=== PATIENT | male | born 1965 | race Caucasian/White ===

== ENCOUNTER 2016-06-05 22:02 | Emergency (ER) | payer OTHER ==
[~2016-06-05] VITALS: Ht 172.7 cm; Wt 85.8 kg
[2016-06-05 22:08] VITALS: Ht 172.7 cm; Wt 85.8 kg
[2016-06-06] MEDS ORDERED: CEFTRIAXONE 1 GM INJ IM ONE
[2016-06-06] MEDS ORDERED: LIDOCAINE 2% (MDV) 20 ML INJ INJ ONE
[2016-06-06] MEDS ORDERED: CEPH-443 PO ×2 (00:30→00:31)
[2016-06-06] MEDS ORDERED: BACTDS PO (00:31)
--- NOTE | 2016-06-06 00:54 | ERD ---
ER Documentation Chief Complaint Date/Time DATE: 06/06/16 TIME: 00:50 Chief Complaint right upper leg swelling/ pain and reddened and warm to touch HPI This is a 50-year-old male who presents to the ER with right upper leg redness, swelling, pain that started 3 days ago. Patient states that the first day he did have a fever however fevers have resolved. Patient believes that something bit him in that area got infected. Patient denies any numbness or tingling of his extremity. Patient states that pain is dull in nature it is worse whenever he touches it. Patient has been trying to ice the area. He denies any trauma or falls. ROS 12 point review of systems was done, all negative except per HPI. Medications Home Meds Active Scripts Sulfamethoxazole-Trimethoprim* (Bactrim* DS) 800-160 Mg Tab, 1 TAB PO BID for 7 Days, TAB Prov:ARMIDA,HUBERT C 06/06/16 Cephalexin* (Keflex*) 500 Mg Capsule, 500 MG PO QID for 7 Days, CAP Prov:ARMIDA,HUBERT C 06/06/16 Allergies Allergies: Coded Allergies: No Known Allergy (Unverified , 06/05/16) PMhx/Soc Medical and Surgical Hx: pt denies Medical Hx, pt denies Surgical Hx History of Surgery: No Anesthesia Reaction: No Hx Neurological Disorder: No Hx Respiratory Disorders: No Hx Cardiac Disorders: No Hx Psychiatric Problems: No Hx Miscellaneous Medical Probl: No Hx Alcohol Use: No Hx Substance Use: No Hx Tobacco Use: No Smoking Status: Never smoker Physical Exam Vitals Vital Signs Date Time Temp Pulse Resp B/P Pulse Ox O2 Delivery O2 Flow Rate FiO2 06/05/16 22:08 98.3 63 20 157/93 97 Physical Exam GENERAL: The patient is well developed and appropriate for usual state of health , in no apparent distress. HEENT: Atraumatic. CHEST: Clear to auscultation bilaterally. There are no rales, wheezes or rhonchi. HEART: Regular rate and rhythm. No murmurs, clicks, rubs or gallops. SKIN: There is a large area of redness to the upper leg that is about 10 cm x 7 cm. Warm to the touch, indurated and tender to palpation. Results 24 hrs Current Medications Medications (Trade) Dose Ordered Sig/Riya Route PRN Reason Start Time Stop Time Status Last Admin Dose Admin Ceftriaxone Sodium (Rocephin) 1 gm ONCE ONCE IM 06/06/16 00:00 06/06/16 00:01 DC 06/06/16 00:03 Lidocaine (Xylocaine 2% (Mdv) 20 ml) 20 ml ONCE ONCE INJ 06/06/16 00:00 06/06/16 00:01 DC 06/06/16 00:04 Procedures/MDM Differential Diagnosis: dermatitis, allergic urticaria, viral exanthem, insect bite, fungal infection ,viral exanthem, hand foot mouth disease, , impetigo, cellulitis, abscess, fariba michael syndrome, meningocemia, necrotizing fasciitis, myositis. Clinical suspcicion for necrotizing fasciitis or myositis is low. There are no skip lesions or pain away from the site of the rash. Patient likely has cellulitis. Patient is afebrile and well-appearing. He was given a shot of Rocephin here in the ER without any complications. Patient will be sent home with Bactrim and with Keflex. He was told to return to ER in 48 hours for recheck. He was also told to return to ER sooner if symptoms worsen. Departure Diagnosis: Primary Impression: Cellulitis Condition: Stable Patient Instructions: Cellulitis Additional Instructions: Regrese a estas instalaciones dentro de [facility] [place] para un examen de seguimiento.Regrese antes si reed condicin se empeora. HUBERT HUFFMAN Jun 06, 2016 00:54
== END 2016-06-06 00:55 | disposition home or self-care (01) ==
LOC: FTE 22:02
DX: L03.115 Cellulitis of right lower limb (principal)
CPT/HCPCS: 96372; J0696; Z7502; Z7610

== ENCOUNTER 2016-06-11 21:53 | Emergency (ER) | payer OTHER ==
[~2016-06-11] VITALS: Ht 167.6 cm; Wt 86.5 kg
[~2016-06-11 21:53] MED LIST: BACTDS PO; CEPH-443 PO
[2016-06-11 22:43] VITALS: Ht 167.6 cm; Wt 86.5 kg
[2016-06-12] MEDS ORDERED: CEFTRIAXONE 1 GM INJ IM STA (00:51)
[2016-06-12] MEDS ORDERED: CLIN-73 PO (01:12)
--- NOTE | 2016-06-12 01:25 | RADRPT ---
PROCEDURE: US right lower extremity venous Doppler CLINICAL INDICATION: Right leg swelling TECHNIQUE: Multiple sonographic images of the right lower extremity deep venous system was obtaine d utilizing grayscale, color-flow, compressive sonography and Doppler imaging with augmentation. COMPARISON: No pertinent prior examinations were submitted for comparison. FINDINGS: There is normal compressibility and flow within the right common femoral, superficial femoral, popli teal, and peroneal veins. IMPRESSION: No sonographic evidence for deep venous thrombosis. RPTAT: HIKT .Baljinder Yee MD, MD Date Time Electronically viewed and signed by .Baljinder Yee MD, MD on 06/12/2016 01:25 .T/
--- NOTE | 2016-06-12 01:44 | ERD ---
ER Documentation Chief Complaint Date/Time DATE: 06/12/16 TIME: 01:40 Chief Complaint Wound check HPI This is a 50-year-old male who presents to the ER with right upper leg redness, swelling, pain that started 6 days ago. Patient states that he may have gotten infected by a bug bite. Patient states that the first day he did have a fever however fevers have resolved. Patient was seen here 2 days ago and was given Keflex and Bactrim. Patient states that it has been worsening since then it has not gotten better. He denies any trauma. Denies any fevers. He states that he is compliant with the medications ROS All systems reviewed and are negative except as per history of present illness. Medications Home Meds Active Scripts Clindamycin Hcl* (Clindamycin Hcl*) 300 Mg Capsule, 300 MG PO TID for 7 Days, CAP Prov:AB EID PA-C 06/12/16 Sulfamethoxazole-Trimethoprim* (Bactrim* DS) 800-160 Mg Tab, 1 TAB PO BID for 7 Days, TAB Prov:ARMIDA,HUBERT C 06/06/16 Cephalexin* (Keflex*) 500 Mg Capsule, 500 MG PO QID for 7 Days, CAP Prov:ARMIDA,HUBERT C 06/06/16 Allergies Allergies: Coded Allergies: No Known Allergy (Unverified , 06/05/16) PMhx/Soc Medical and Surgical Hx: pt denies Medical Hx, pt denies Surgical Hx History of Surgery: No Anesthesia Reaction: No Hx Neurological Disorder: No Hx Respiratory Disorders: No Hx Cardiac Disorders: No Hx Psychiatric Problems: No Hx Miscellaneous Medical Probl: No Hx Alcohol Use: No Hx Substance Use: No Hx Tobacco Use: No Smoking Status: Never smoker Physical Exam Vitals Vital Signs Date Time Temp Pulse Resp B/P Pulse Ox O2 Delivery O2 Flow Rate FiO2 06/11/16 22:43 98.6 70 18 112/68 100 Physical Exam General: WD/WN, in no apparent distress, non-toxic appearing HENT: NC/AT Eyes: Conjunctiva normal Neck: Supple Pulm: Clear to auscultation, normal labored breathing; no wheezing/rales/ rhonchi heard CV: Good capillary refill GI: Non-distended, no guarding Back: No masses Ext: No clubbing, cyanosis, or edema Neuro: Moves on all fours Skin: Erythematous, warm indurated patch on right upper leg -not circumferential Psych: Normal mood Results 24 hrs Current Medications Medications (Trade) Dose Ordered Sig/Riya Route PRN Reason Start Time Stop Time Status Last Admin Dose Admin Ceftriaxone Sodium (Rocephin) 1 gm ONCE STAT IM 06/12/16 00:51 06/12/16 00:52 DC 06/12/16 01:27 Procedures/MDM This is a 50-year-old male presenting to the emergency department for right upper leg swelling and erythema that started 6 days ago. Patient was seen here 2 days ago and was given Keflex and Bactrim. Patient states that it has been worsening and not getting any better therefore I have changed the antibiotic to clindamycin. I have marked the skin today and discussed patient to return in 2 days for improvement, discussed return to the ER sooner if it worsens. I have a low suspicion for osteomyelitis, DVT, lymphangitis due to physical examination. I have consulted my supervising physician Dr. Pfeiffer stated to give patient 1 g of Rocephin in the ED. Patient is afebrile, he has stable vital signs for discharge. Discussed 2 day wound check. Patient understands and agrees with this plan A venous ultrasound was done in the ED and there was no evidence of deep vein thrombosis in the right leg Departure Diagnosis: Primary Impression: Encounter for wound re-check Additional Impression: Cellulitis Condition: Fair Patient Instructions: Cellulitis Additional Instructions: Regrese a estas instalaciones dentro de [facility] [place] para un examen de seguimiento.Regrese antes si reed condicin se empeora. Dean toda la medicina tate y demetri se le indic. Regrese a estas instalaciones si no se mejora demetri esperbamos o demetri le dijimos. AB EID PA-C Jun 12, 2016 01:43
[2016-06-12 01:47] VITALS: BP 137/80; PULSE 60; RESP 18; TEMP 98
== END 2016-06-12 01:48 | disposition home or self-care (01) ==
LOC: FTE 21:53
DX: L03.115 Cellulitis of right lower limb (principal)
CPT/HCPCS: 93971; 96372; J0696; Z7502

== ENCOUNTER 2017-01-12 12:08 | Emergency (ER) | payer OTHER ==
[~2017-01-12] VITALS: Ht 162.6 cm; Wt 86.0 kg
[~2017-01-12 12:08] MED LIST changes: +CLIN-73 PO
[2017-01-12 12:41] VITALS: Ht 162.6 cm; Wt 86.0 kg
[2017-01-12] MEDS ORDERED: HYDR-906 PO (13:16)
[2017-01-12] MEDS ORDERED: MED4DP PO (13:16)
[2017-01-12] MEDS ORDERED: CYCL-319 PO (13:16)
[2017-01-12 14:34] VITALS: BP 144/77; PULSE 63; RESP 17; TEMP 99.1
--- NOTE | 2017-01-12 15:14 | ERD ---
ER Documentation Chief Complaint Date/Time DATE: 01/12/17 TIME: 15:10 Chief Complaint CAME IN VIA INTAKE DUE BACK PAIN HPI 51-year-old male complaining of right-sided back pain 2 days. Patient states pain is worse with ambulation and standing up. Pain radiates down right buttock. Denies any change in urination or bowel movement. Denies numbness or tingling to extremities. Denies fever. Denies acute traumatic injury. Patient has not had pain like this before. Denies abdominal pain. Has not taken medications for symptoms. Medical problems: Denies. Surgical history: Hernia repair. NKDA. Social history: Denies ROS All systems reviewed and are negative except as per history of present illness. Medications Home Meds Active Scripts Methylprednisolone* (Medrol* DOSE PACK) 4 Mg/Dose-Pack Tab.ds.pk, 4 MG PO . DIRECTED, #1 PACKET Prov:BRYAN GRIFFIN PA-C 01/12/17 Cyclobenzaprine Hcl* (Cyclobenzaprine Hcl*) 10 Mg Tablet, 10 MG PO TID, #15 TAB Prov:BRYAN GRIFFIN PA-C 01/12/17 Hydrocodone/Acetaminophen ([place] 5-325 Tablet) 1 Each Tablet, 1 TAB PO Q6H Y for PAIN, #7 TAB Prov:BRYAN GRIFFIN PA-C 01/12/17 Clindamycin Hcl* (Clindamycin Hcl*) 300 Mg Capsule, 300 MG PO TID for 7 Days, CAP Prov:AB EID PA-C 06/12/16 Sulfamethoxazole-Trimethoprim* (Bactrim* DS) 800-160 Mg Tab, 1 TAB PO BID for 7 Days, TAB Prov:HUBERT HUFFMAN 06/06/16 Cephalexin* (Keflex*) 500 Mg Capsule, 500 MG PO QID for 7 Days, CAP Prov:ARMIDAHUBERT C 06/06/16 Allergies Allergies: Coded Allergies: No Known Allergy (Unverified , 06/05/16) PMhx/Soc History of Surgery: No Anesthesia Reaction: No Hx Neurological Disorder: No Hx Respiratory Disorders: No Hx Cardiac Disorders: No Hx Psychiatric Problems: No Hx Miscellaneous Medical Probl: No Hx Alcohol Use: No Hx Substance Use: No Hx Tobacco Use: No Physical Exam Vitals Vital Signs Date Time Temp Pulse Resp B/P Pulse Ox O2 Delivery O2 Flow Rate FiO2 01/12/17 12:41 98.6 69 18 151/91 96 Physical Exam GENERAL: The patient is well-appearing, well-nourished, in no acute distress CHEST: Clear to auscultation bilaterally. There are no rales, wheezes or rhonchi. HEART: Regular rate and rhythm. No murmurs, clicks, rubs or gallops. No S3 or S4. ABDOMEN:Soft, nontender and nondistended. Good bowel sounds. No rebound or guarding. No gross peritonitis. No gross organomegaly or masses. No Washington sign or McBurney point tenderness. BACK: No midline or flank tenderness. Tender to palpation over right lower paraspinous muscles. EXTREMITIES: Equal pulses bilaterally. There is no peripheral clubbing, cyanosis or edema. No focal swelling or erythema. Full range of motion. Grossly neurovascularly intact. NEUROLOGIC: Alert and oriented. Motor strength in all 4 extremities with 5 out of 5 strength. Sensation grossly intact. Normal speech and gait. DTR 2+ throughout. SKIN: There is no apparent rash or petechiae. The skin is warm and dry. Procedures/MDM MDM: I have low suspicion for cauda equina, epidural abscess, or discitis. Patient's exam is non-concerning and vital signs are stable. Patient's pain is likely associated with musculoskeletal strain and sciatica. Patient is ambulating without difficulty. Patient will be discharged with pain medication. Patient is told if symptoms change or worsen to return the emergency room. I have low suspicion for acute abdomen. Patient's abdominal exam is non-concerning. I have low suspicion for AAA or aortic dissection. Patient will follow up with PMD within 1-2 days for close evaluation. All questions answered at discharge. Departure Diagnosis: Primary Impression: Back pain Condition: Stable Patient Instructions: Back Pain W/ Sciatica Referrals: [facility] YOU HAVE RECEIVED A MEDICAL SCREENING EXAM AND THE RESULTS INDICATE THAT YOU DO NOT HAVE A CONDITION THAT REQUIRES URGENT TREATMENT IN THE EMERGENCY DEPARTMENT. FURTHER EVALUATION AND TREATMENT OF YOUR CONDITION CAN WAIT UNTIL YOU ARE SEEN IN YOUR DOCTORS OFFICE WITHIN THE NEXT 1-2 DAYS. IT IS YOUR RESPONSIBILITY TO MAKE AN APPOINTMENT FOR FOLOW-UP CARE. IF YOU HAVE A PRIMARY DOCTOR --you should call your primary doctor and schedule an appointment IF YOU DO NOT HAVE A PRIMARY DOCTOR YOU CAN CALL OUR PHYSICIAN REFERRAL HOTLINE AT IF YOU CAN NOT AFFORD TO SEE A PHYSICIAN YOU CAN CHOSE FROM THE FOLLOWING [facility] [address] [facility] [address] [facility] [address] [facility] [address] [facility] [address] [facility]. [facility] [address] Additional Instructions: FOLLOW UP WITH YOUR PRIMARY CARE PHYSICIAN TOMORROW.Return to this facility if you are not improving as expected. BRYAN GRIFFIN PA-C Jan 12, 2017 15:14
== END 2017-01-12 14:34 | disposition home or self-care (01) ==
LOC: FTE 12:08
DX: M54.9 Dorsalgia, unspecified (principal)
CPT/HCPCS: 99284